=== PATIENT | female | born 1975 | race Caucasian/White ===

== ENCOUNTER 2016-12-05 06:11 | Observation (INO) | payer OTHER ==
[2016-12-05] MEDS ORDERED: LR 1,000 ML IV ONE (06:23)
[2016-12-05] MEDS ORDERED: LIDOCAINE 1% 2 ML INJ ID PRN (06:23)
[2016-12-05] MEDS ORDERED: DEXAMETHASONE 10 MG/ML VIAL IV ONE (06:45)
[2016-12-05] MEDS ORDERED: CLINDAMYCIN 600 MG/DEXTROSE 50 ML IV ONE (06:45)
[2016-12-05] MEDS ORDERED: LIDO/EPI 2%** Not for Epidural 20 ML MDV ONE (06:55)
[2016-12-05] MEDS ORDERED: BACITRACIN ZINC 14.2 GM OINTTUBE TP ONE (06:55)
[2016-12-05] MEDS ORDERED: MIDAZOLAM 2 MG/2 ML VIAL IVP ONE (07:11)
--- NOTE | 2016-12-05 07:14 | PDANEPAE ---
ANE History of Present Illness 41 year old female presents for left partial thyroidectomy for nodules. Patient previously had a right partial thyroidectomy. ANE Past Medical History - Cardiovascular History Hx Hypertension: No Hx Arrhythmias: No Hx Chest Pain: No Hx Coronary Artery / Peripheral Vascular Disease: Yes Hx CHF / Valvular Disease: No Hx Palpitations: No Cardiovascular History Comment: Patient reports she previously had a very small distal blocked coronary artery and was placed on plavix without further intervention. - Pulmonary History Hx COPD: No Hx Asthma/Reactive Airway Disease: No Hx Recent Upper Respiratory Infection: No Hx Oxygen in Use at Home: No Hx Sleep Apnea: No Sleep Apnea Screening Result - Last Documented: Negative - Neurologic History Hx Cerebrovascular Accident: No Hx Seizures: No Hx Dementia: No - Endocrine History Hx Diabetes: No Hypothyroid: No Hyperthyroid: No Endocrine History Comment: THYROID NODULES - Renal History Hx Renal Disorders: No - Liver History Hx Hepatic Disorders: No - Neurological & Psychiatric Hx Hx Neurological and Psychiatric Disorders: No - Cancer History Hx Cancer: No - Congenital Disorder History Hx Congenital Disorders: No - GI History GERD: no Hx Gastrointestinal Disorders: No - Other Health History Other Health History: RESTLESS LEG - Chronic Pain History Chronic Pain: No - Surgical History Prior Surgeries: RT PARTIAL THYROIDECTOMY 2006. . LT KNEE SCOPE ANE Review of Systems Review of systems is: negative Review of Systems: - Exercise capacity Exercise capacity: >=4 METS METS (RN): 4 METS ANE Patient History - Allergies Allergies/Adverse Reactions: cephalexin [From Keflex] Allergy (Verified 11/07/16 10:58) Rash diphenhydramine [From Benadryl] Allergy (Verified 11/07/16 10:58) Hives Penicillins Allergy (Verified 11/07/16 10:58) Rash - Home Medications Home medications: home medication list seen and reviewed Home Medications: Acetaminophen [Tylenol 325mg (*)] 325 mg PO DAILY PRN 11/07/16 [Last Taken Unknown] Atorvastatin Calcium [Lipitor 40 mg (*)] 40 mg PO HS 11/07/16 [Last Taken Unknown] Pramipexole Di-HCl [Mirapex 0.125 mg (*)] 0.125 mg PO HS 11/07/16 [Last Taken Unknown] traZODone [traZODONE 100MG (*)] 100 mg PO HS 11/07/16 [Last Taken Unknown] - NPO status NPO Status: no food or drink >8 hours NPO Since - Liquids (Date): 12/04/16 NPO Since - Liquids (Time): 22:30 NPO Since - Solids (Date): 12/04/16 NPO Since - Solids (Time): 22:30 - Anes Hx Anes Hx: no prior problems - Smoking Hx Smoking Status: Heavy smoker - Alcohol Use Alcohol Use: Occasionally - Family Anes Hx Family Anes Hx: neg - N/A ANE Labs/Vital Signs - Vital Signs Vital Signs: reviewed preoperatively; see RN documention for details Blood Pressure: 95/72 Heart Rate: 93 Respiratory Rate: 16 O2 Sat (%): 95 Height: 157.48 cm Weight: 68.039 kg ANE Physical Exam - Airway Neck exam: FROM Mouth exam: small mouth opening, abnormal chin - Pulmonary Pulmonary: no respiratory distress - Cardiovascular Cardiovascular: regular rate and rhythym - ASA Status ASA Status: II ANE Anesthesia Plan Anesthesia Plan: general endotracheal anesthesia Total IV Anesthesia: No
[2016-12-05] MEDS ORDERED: LIDOCAINE 2% 5 ML SDV ONE (07:20)
[2016-12-05] MEDS ORDERED: PROPOFOL 200 MG/20 ML VIAL ONE (07:20)
[2016-12-05] MEDS ORDERED: fentaNYL 100 MCG/2 ML INJ ONE ×2 (07:20→09:58)
[2016-12-05] MEDS ORDERED: ROCURONIUM 50 MG/5 ML VIAL ONE (07:21)
--- NOTE | 2016-12-05 07:25 | PDHPUP ---
History & Physical Update H&P update statement: This history and physical update is based on an assessment of the patient which was completed after admission or registration (within 24 hours), but prior to the surgery/procedure. H&P update: H&P reviewed & patient examined (Pt with no changes in her condition.), no change in patient's condition since H&P completed
[2016-12-05] MEDS ORDERED: NALOXONE HCL 0.4 MG/ML INJ IVP PRN (08:43)
[2016-12-05] MEDS ORDERED: ONDANSETRON 4 MG/2 ML VIAL IVP PRN ×2 (08:43→09:50)
[2016-12-05] MEDS ORDERED: HYDROCODONE/APAP 5/325 TAB PO PRN (08:43)
[2016-12-05] MEDS ORDERED: PHENYLEPHRINE HCL 100 MCG/ML SYR ONE ×2 (09:07)
[2016-12-05] MEDS ORDERED: SUGAMMADEX SODIUM 200 MG/2 ML VIAL IVP ONE (09:08)
[2016-12-05] MEDS ORDERED: ONDANSETRON 4 MG/2 ML VIAL ONE (09:08)
--- NOTE | 2016-12-05 09:50 | POSTOPPROG ---
Post Op Note Date of Operation: 12/05/16 Surgeon: Antelmo Rosario Spot Remover: Pillo Khan MD Anesthesiologist: QUIRINO Anesthesia: GET(General Endotracheal) Pre-op Diagnosis: Left thyroid goiter Post-op Diagnosis: Same Indication: enlarging thyroid mass Procedure: Left thyroid lobectoomy (Completion Thyroidectomy Findings: Nodular left thryoid lobe, RLN and the inferior parathyroid gland preserved Inf/Abcess present in the surg proc area at time of surgery?: No Depth: Organ Space EBL: 50-100 Complications: none Drains: Ric Salvador (10 Fr round suction drain)
[2016-12-05] MEDS ORDERED: D5W 1/2 NS W/ 20 KCl/L 1,000 ML IV SCH (10:00)
[2016-12-05] MEDS: fentaNYL 100 MCG/2 ML INJ IVP PRN ×2 (10:02→10:19)
[2016-12-05 10:25] LABS: IONIZED CALCIUM 1.16 MMOL/L (1.12-1.30)
[2016-12-05] MEDS ORDERED: HYDROmorphONE/DILAUDID 1 MG/ML INJ ONE (10:29)
[2016-12-05] MEDS: HYDROmorphONE/DILAUDID 1 MG/ML INJ IVP PRN ×2 (10:36→11:04)
--- NOTE | 2016-12-05 11:36 | GOP ---
[f rep st] OPERATIVE REPORT DATE OF OPERATION: 12/05/2016 SURGEON: Antelmo Rosario MD CONVALESCENT SITTER: Dipak Khan ANESTHESIA: General. PREOPERATIVE DIAGNOSIS: Left thyroid goiter. POSTOPERATIVE DIAGNOSIS: Left thyroid goiter. PROCEDURE PERFORMED: Left thyroid lobectomy (completion thyroidectomy). FINDINGS: Nodular left thyroid lobe. The recurrent laryngeal nerve was identified and preserved as was the inferior parathyroid gland. I did not identify the superior parathyroid gland. SPECIMENS: Left thyroid lobe. ESTIMATED BLOOD LOSS: 50 cc. INDICATIONS: The patient is a 41-year-old woman with an enlarging left thyroid mass. She has had a prior history of right thyroid lobectomy at a different institution with a different surgeon. 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 She presents for completion thyroidectomy, removal of the left thyroid lobe due to enlargement of the left thyroid mass. DESCRIPTION OF PROCEDURE: The patient was taken the OR, positively identified, placed on monitors, and general anesthesia was induced. The patient was prepped and draped in normal sterile fashion. An incision was marked out along the anterior neck skin crease and infiltrated with 3 cc of 2% lidocaine with 1: 100,000 epinephrine. The skin was then sharply incised. Dissection was carried down through the platysma. Superior and inferior subplatysmal flaps were then raised and secured. The strap muscles were divided in the midline and elevated off the left lobe of the thyroid gland. The superior vascular pedicle was isolated, clamped, cut, and ligated with 2-0 silk suture ligature. Dissection was then carried along the thyroid capsule rotating it medially. The middle thyroid vein was clamped, cut, and ligated. Smaller feeding vessels were divided using bipolar cautery when appropriate. The recurrent laryngeal nerve was identified as was the superior parathyroid gland, both of which were preserved. Nolasco's ligament was divided. I then rotated the thyroid gland off the trachea. The inferior vascular pedicle was clamped and ligated. At this point, the wound was irrigated with sterile saline. Hemostasis was assured. A 10-Austrian round drain was placed through a separate stab incision and secured with a drain stitch. At this point, the wound was closed with interrupted 3-0 Vicryl to reapproximate the strap muscles in the midline, 4-0 Monocryl to the platysma and subcutaneous tissues and a running 5-0 locked Prolene to reapproximate the skin. A pressure dressing was placed and the case was terminated and the anesthetic discontinued. The patient was taken to postop care in good condition having tolerated the procedure well. COMPLICATIONS: None. /[id number]/MODL MTDD
[2016-12-05] MEDS ORDERED: BACITRACIN OINTMENT 1 PACKET TP ONE (11:56)
[2016-12-05] MEDS: CLINDAMYCIN 600 MG/DEXTROSE 50 ML IV SCH ×2 (13:45→22:19)
--- NOTE | 2016-12-05 14:53 | POSTANESTH ---
Post Anesthetic Evaluation Cardiovascular Status: Normal, Stable, Similar to Pre-Op Cond Respiratory Status: Normal, Stable, Similar to Pre-op Cond. Level of Consciousness/Mental Status: Can Participate in Eval, Alert and Oriented Pain Control: Adequate, Prn Tx Ordered Nausea/Vomiting Control: Adequate, Prn Tx Ordered Complications Possibly Related to Anesthesia: None Noted
[2016-12-05] MEDS: OXYCODONE/APAP 5/325 TAB PO PRN ×2 (15:10→20:08)
[2016-12-05] MEDS: NICOTINE 21 MG/24 HR PATCH TD SCH (17:10)
--- NOTE | 2016-12-05 17:10 | SOAPPROG ---
SOAP Progress Note Assessment/Plan: Assessment: 41 year old female s/p left thyroid lobectomy doing well. We will continue to monitor Ca and plan to d/c tomorrow. 12/05/16 17:07 Subjective: Kymberly states she is doing well. Denies tingling of lips or fingers. Has no concerns or questions. Objective: Vital Signs Temp Pulse Resp BP Pulse Ox 37.0 C 94 18 114/76 95 12/05/16 15:40 12/05/16 15:40 12/05/16 15:40 12/05/16 15:40 12/05/16 15:40 12/04/16 12/05/16 12/06/16 05:59 05:59 05:59 Intake Total 1650 Output Total 18 Balance 1632 Patient alert and oriented in bed. Dressing and drain in place, minimal bleeding. Cranial nerves II-XII grossly intact. ICD10 Worksheet Patient Problems: Problems Problem Status Onset Thyroid mass Acute - ICD10 Problem Qualifiers (1) Thyroid mass
[2016-12-05 17:37] LABS: IONIZED CALCIUM 1.13 MMOL/L (1.12-1.30)
[2016-12-05] MEDS ORDERED: FLU VACC QS 2017-18 (3YR+)/PF 0.5 ML SYR (FLUARIX QUAD) IM ONE (20:45)
[2016-12-05 22:33] LABS: IONIZED CALCIUM 1.15 MMOL/L (1.12-1.30)
[2016-12-06 05:05] LABS: IONIZED CALCIUM 1.16 MMOL/L (1.12-1.30)
[2016-12-06] MEDS: CLINDAMYCIN 600 MG/DEXTROSE 50 ML IV SCH (06:23)
[2016-12-06] MEDS: OXYCODONE/APAP 5/325 TAB PO PRN (06:23)
[2016-12-06 07:20] VITALS: BP 107/58; PULSE 96; RESP 18; TEMP 98.9; O2SAT 92
[2016-12-06] MEDS: NICOTINE 21 MG/24 HR PATCH TD SCH (08:13)
--- NOTE | 2016-12-06 14:47 | ASDISCHSUM ---
Discharge Information Plan Status:Home with No Needs Medically Cleared to Leave: Discharge Date:12/06/2016 10:02 AM CM D/C Disposition:Home, Routine, Self-Care ADT D/C Disposition:Home, Routine, Self-Care Projected Discharge Date:12/06/2016 10:02 AM Transportation at D/C: Discharge Delay Reason: Follow-Up Date:12/06/2016 10:02 AM Discharge Slot: Final Diagnosis: Placement Information Patient Contact Information Contact Name:NANDINI Relationship:Father Address: Work Phone: City: [facility] Phone: State/[employer] [employer] Code: Email: Financial Information Financial Class:O and PPO Plans Primary Plan Desc:STUARTJACQUELINE Primary Plan Number:[id number] Secondary Plan Desc: Secondary Plan Number: Assessment Information Intervention Information
--- NOTE | 2016-12-06 23:44 | GDS ---
[f rep st] DISCHARGE SUMMARY The patient is a 41-year-old female. She is one day s/p left thyroidectomy for completion of thyroidectomy following thyroid nodules. She was admitted on 01/2017, for left thyroidectomy and remained for observation until 12/06/2016. Patient had minimal bleeding. Drain removed and dressing was replaced. She was discharged home in stable condition. She was instructed to follow up in one week for suture removal in office. /[id number]/MODL MTDD
== END 2016-12-06 10:02 | disposition home or self-care (01) ==
LOC: F3N 06:11 → F3E 11:31
PROVIDERS: ADMIT Otolaryngology; ATTEND Otolaryngology
PROC: 0GTG0ZZ Resection of Left Thyroid Gland Lobe, Open Approach (ICD-10-PCS; principal; 2016-12-05 07:30)
DX: D34 Benign neoplasm of thyroid gland (principal); Z80.8 Family history of malignant neoplasm of other organs or systems; Z23 Encounter for immunization; G25.81 Restless legs syndrome
CPT/HCPCS: 60220; 90471; G0378; G0008; J1100; J1170; J2250; J2370; J2405; J2704; J3010